=== PATIENT | male | born 1950 | race Caucasian/White ===

== ENCOUNTER 2019-01-13 19:31 | Emergency (ER) | payer MEDICARE ==
[2019-01-13] MEDS ORDERED: NACL 0.9% 1000 ML 1,000 ML IV ONE (21:21)
[2019-01-13 21:45] VITALS: BP 134/77
--- NOTE | 2019-01-13 21:49 | Emergency Department Report ---
ED General Adult HPI - General Chief complaint: Chest Pain Stated complaint: CHEST DISCOMFORT Time Seen by Provider: 01/13/19 19:43 Source: patient, EMS Mode of arrival: Stretcher Limitations: No Limitations - History of Present Illness Initial comments: The patient presents to the emergency department for possible heat exhaustion. The patient states he was riding in his car all day today and does not have air conditioning. Patient states that he wanted to be evaluated because he has a history of diabetes and 4 cardiac stents and was initially resulted. He denies chest pain, shortness breath, or abdominal pain. The patient states that he just felt exhausted and dehydrated -: Sudden Severity scale (0 -10): 0 Consistency: constant Improves with: none Worsens with: none Associated Symptoms: denies other symptoms Treatments Prior to Arrival: none - Related Data Home Medications Medication Instructions Recorded Confirmed Last Taken Atorvastatin [Lipitor] 40 mg PO DAILY 08/25/13 04/18/16 04/17/16 metFORMIN [Glucophage] 500 mg PO BID 07/06/14 04/18/16 04/16/16 Losartan [Cozaar] 50 mg PO QDAY 04/18/16 04/18/16 04/17/16 Ranitidine HCl [Acid Receivables Specialist] 150 mg PO BID 04/18/16 04/18/16 04/17/16 glipiZIDE [Glipizide] 5 mg PO BID 04/18/16 04/18/16 04/17/16 Previous Rx's Medication Instructions Recorded Last Taken Type Carvedilol [Coreg] 3.125 mg PO BID #60 tablet 08/06/13 04/17/16 Rx Clopidogrel [Plavix] 75 mg PO QDAY #30 tablet 09/23/13 04/17/16 Rx Allergies Allergy/AdvReac Type Severity Reaction Status Date / Time No Known Allergies Allergy Verified 07/06/14 13:35 ED Review of Systems ROS: Stated complaint: CHEST DISCOMFORT Other details as noted in HPI Comment: All other systems reviewed and negative Constitutional: denies: chills, fever Eyes: denies: eye pain, eye discharge, vision change ENT: denies: ear pain, throat pain Respiratory: denies: cough, shortness of breath, wheezing Cardiovascular: denies: chest pain, palpitations Endocrine: no symptoms reported Gastrointestinal: denies: abdominal pain, nausea, diarrhea Genitourinary: denies: urgency, dysuria Musculoskeletal: denies: back pain, joint swelling, arthralgia Skin: denies: rash, lesions Neurological: denies: headache, weakness, paresthesias Psychiatric: denies: anxiety, depression Hematological/Lymphatic: denies: easy bleeding, easy bruising ED Past Medical Hx - Past Medical History Previous Medical History?: Yes Hx Hypertension: Yes Hx Heart Attack/AMI: Yes (x4) Hx Congestive Heart Failure: No Hx Diabetes: Yes Hx Asthma: No Hx COPD: No Hx HIV: No Additional medical history: CAD - Surgical History Past Surgical History?: Yes Hx Coronary Stent: Yes (1 stent LAD 08/04/13 (3 STENTS)) - Social History Smoking Status: Never Smoker Substance Use Type: None - Medications Home Medications: Home Medications Medication Instructions Recorded Confirmed Last Taken Type Carvedilol [Coreg] 3.125 mg PO BID #60 tablet 08/06/13 04/18/16 04/17/16 Rx Atorvastatin [Lipitor] 40 mg PO DAILY 08/25/13 04/18/16 04/17/16 History Clopidogrel [Plavix] 75 mg PO QDAY #30 tablet 09/23/13 04/18/16 04/17/16 Rx metFORMIN [Glucophage] 500 mg PO BID 07/06/14 04/18/16 04/16/16 History Losartan [Cozaar] 50 mg PO QDAY 04/18/16 04/18/16 04/17/16 History Ranitidine HCl [Acid Receivables Specialist] 150 mg PO BID 04/18/16 04/18/16 04/17/16 History glipiZIDE [Glipizide] 5 mg PO BID 04/18/16 04/18/16 04/17/16 History ED Physical Exam - General Limitations: No Limitations General appearance: alert, in no apparent distress - Head Head exam: Present: atraumatic, normocephalic - Eye Eye exam: Present: normal appearance - ENT ENT exam: Present: mucous membranes dry - Neck Neck exam: Present: normal inspection - Respiratory Respiratory exam: Present: normal lung sounds bilaterally. Absent: respiratory distress, wheezes - Cardiovascular Cardiovascular Exam: Present: regular rate, normal rhythm. Absent: systolic murmur, diastolic murmur, rubs, gallop - GI/Abdominal GI/Abdominal exam: Present: soft, normal bowel sounds. Absent: distended, tenderness - Rectal Rectal exam: Present: deferred - Extremities Exam Extremities exam: Present: normal inspection - Back Exam Back exam: Present: normal inspection - Neurological Exam Neurological exam: Present: alert, oriented X3, CN II-XII intact. Absent: motor sensory deficit - Psychiatric Psychiatric exam: Present: normal affect, normal mood - Skin Skin exam: Present: warm, dry, intact, normal color. Absent: rash ED Course Vital Signs 01/13/19 01/13/19 01/13/19 19:55 20:09 20:31 Temperature 98.5 F 98.3 F Pulse Rate 78 78 79 Respiratory 18 16 11 L Rate Blood Pressure 131/82 139/78 Blood Pressure 139/78 [Left] O2 Sat by Pulse 100 96 98 Oximetry 01/13/19 01/13/19 21:00 21:31 Temperature Pulse Rate 77 77 Respiratory 12 12 Rate Blood Pressure 134/77 134/77 Blood Pressure [Left] O2 Sat by Pulse 96 95 Oximetry ED Medical Decision Making - Lab Data Result diagrams: 01/13/19 21:40 01/13/19 21:40 Lab Results 01/13/19 01/13/19 Range/Units 21:40 21:40 WBC 5.6 (4.5-11.0) K/mm3 RBC 4.83 (3.65-5.03) M/mm3 Hgb 12.9 (11.8-15.2) gm/dl Hct 39.7 (35.5-45.6) % MCV 82 L (84-94) fl MCH 27 L (28-32) pg MCHC 33 (32-34) % RDW 15.5 H (13.2-15.2) % Plt Count 192 (140-440) K/mm3 Lymph % (Auto) 21.9 (13.4-35.0) % Holmes % (Auto) 8.1 H (0.0-7.3) % Eos % (Auto) 2.9 (0.0-4.3) % Baso % (Auto) 0.4 (0.0-1.8) % Lymph # 1.2 (1.2-5.4) K/mm3 Holmes # 0.5 (0.0-0.8) K/mm3 Eos # 0.2 (0.0-0.4) K/mm3 Baso # 0.0 (0.0-0.1) K/mm3 Seg Neutrophils % 66.7 (40.0-70.0) % Seg Neutrophils # 3.8 (1.8-7.7) K/mm3 Sodium 136 L (137-145) mmol/L Potassium 4.3 (3.6-5.0) mmol/L Chloride 103.1 (98-107) mmol/L Carbon Dioxide 22 (22-30) mmol/L Anion Gap 15 mmol/L BUN 21 H (9-20) mg/dL Creatinine 1.0 (0.8-1.5) mg/dL Estimated GFR > 60 ml/min BUN/Creatinine Ratio 21 % Glucose 189 H (75-100) mg/dL Calcium 8.9 (8.4-10.2) mg/dL Total Bilirubin 0.20 (0.1-1.2) mg/dL AST 11 (5-40) units/L ALT 13 (7-56) units/L Alkaline Phosphatase 78 (35-129) units/L Total Creatine Kinase 89 (55-170) units/L Troponin T < 0.010 (0.00-0.029) ng/mL Total Protein 7.3 (6.3-8.2) g/dL Albumin 3.9 (3.9-5) g/dL Albumin/Globulin Ratio 1.1 % - EKG Data -: EKG Interpreted by Me EKG shows normal: sinus rhythm Rate: normal Critical care attestation.: If time is entered above; I have spent that time in minutes in the direct care of this critically ill patient, excluding procedure time. ED Disposition Clinical Impression: Heat exhaustion Disposition: TO HOME OR SELFCARE Is pt being admited?: No Does the pt Need Aspirin: No Condition: Stable Instructions: Heat Exhaustion (ED) Additional Instructions: return if worse Referrals: CECELIA VELA MD [Primary Care Provider] - 3-5 Days [facility] [Provider Group] - 3-5 Days [facility] [Provider Group] - 3-5 Days Time of Disposition: 23:01
[2019-01-13 21:51] LABS: Basophils % (Auto) 0.4 % (0.0-1.8); Eosinophils # (Auto) 0.2 K/mm3 (0.0-0.4); Eosinophils % (Auto) 2.9 % (0.0-4.3); Hematocrit 39.7 % (35.5-45.6); Hemoglobin 12.9 gm/dl (11.8-15.2); Lymphocytes # (Auto) 1.2 K/mm3 (1.2-5.4); Lymphocytes % (Auto) 21.9 % (13.4-35.0); Mean Corpuscular HGB Conc 33 % (32-34); Mean Corpuscular Volume 82 fl (84-94); Monocytes # (Auto) 0.5 K/mm3 (0.0-0.8); Monocytes % (Auto) 8.1 % (0.0-7.3); Platelet Count 192 K/mm3 (140-440); Red Blood Count 4.83 M/mm3 (3.65-5.03); Red Cell Distribution Width 15.5 % (13.2-15.2)
[2019-01-13 22:10] LABS: Alanine Aminotransferase 13 units/L (7-56); Albumin 3.9 g/dL (3.9-5); BUN/Creatinine Ratio 21; Blood Urea Nitrogen 21 mg/dL (9-20); Calcium 8.9 mg/dL (8.4-10.2); Hemolysis Index 5
== END 2019-01-13 23:20 | disposition home or self-care (01) ==
LOC: ED 19:31
DX: T67.5XXA Heat exhaustion, unspecified, initial encounter (principal); I10 Essential (primary) hypertension; I25.2 Old myocardial infarction; E11.9 Type 2 diabetes mellitus without complications; I25.10 Atherosclerotic heart disease of native coronary artery without angina pectoris; Z95.5 Presence of coronary angioplasty implant and graft; Z79.899 Other long term (current) drug therapy; X58.XXXA Exposure to other specified factors, initial encounter; Y93.89 Activity, other specified; Y92.89 Other specified places as the place of occurrence of the external cause; Y99.8 Other external cause status
CPT/HCPCS: 36415; 80053; 82550; 84484; 85025; 93005; 93010; 96360; 99284; J7030